=== PATIENT | male | born 1960 | race Caucasian/White ===

== ENCOUNTER 2022-08-17 07:29 | Observation (INO) | payer MEDICARE ==
[2022-08-17] MEDS ORDERED: Sodium Chloride 0.9% 1000 ML 1,000 ML IV STA (07:45)
[2022-08-17] MEDS ORDERED: Sodium Chloride 0.9% 1000 ML 1,000 ML ONE ×2 (07:52→09:08)
--- NOTE | 2022-08-17 07:54 | ERPHSYRPT ---
- History of Present Illness Time Seen by Provider: 08/17/22 07:45 Source: patient Exam Limitations: no limitations Patient Subjective Stated Complaint: Cough Triage Nursing Assessment: Patient brought to ED per w/c and transferred self to bed. Patient A+O X 3. Patient's skin pink, warm and dry. Patient complains of non productive cough, bodyaches, chills, congestion and occasioanl SOB, and diarrhea for the past 3 days. Patient reports not eating or drinking much. Patient complains of body aches 07/03. Lungs clear a/p donavan. Physician History: 61-year-old male with history of hypertension, hyperlipidemia, chronic back pain on pain pump presented in the ER with 3 days history of flulike symptoms. Patient reports feeling generalized body aches with cough congestion/runny nose. Nonproductive cough because of repeated coughing having generalized chest soreness. Having chills and night sweats along with generalized weakness fatigue and tiredness. Patient feels dehydrated as he has not been eating drinking well for the last 3 days. No abdominal pain nausea vomiting but has have loose stool. Timing/Duration: day(s) (3), gradual onset, worse Cough Quality/Degree: moderate, dry cough Possible Cause: unknown cause Modifying Factors: Worsens With: coughing, exertion Associated Symptoms: chills, chest pain/soreness, cough, headache, muscle aches, nasal congestion, nasal drainage, sinus infection, sore throat, No shortness of breath Allergies/Adverse Reactions: Penicillins Allergy (Verified 08/17/22 08:00) Hx Influenza Vaccination/Date Given: Yes Hx Pneumococcal Vaccination/Date Given: Yes Immunizations Up to Date: Yes Travel Risk - International Travel Have you traveled outside of the country in past 3 weeks: No - Coronavirus Screening Are you exhibiting any of the following symptoms?: Yes Symptoms: Cough: New Onset, Vomiting/Diarrhea, Headaches/Body Aches/Fatigue Close contact with a COVID-19 positive Pt in past 14-21 Days: No - Vaccine Status Have you recieved a Covid-19 vaccination: Yes [employer]: [employer] - Vaccination Dates Date of 2cond Vaccination (if applicable): na - Review of Systems Constitutional: Chills, Fatigue, Weakness Eyes: No Symptoms Ears, Nose, & Throat: Nose Congestion, Throat Pain Respiratory: Cough, No Dyspnea Cardiac: No Symptoms Abdominal/Gastrointestinal: Diarrhea Genitourinary Symptoms: No Symptoms Musculoskeletal: Back Pain, Myalgias Skin: No Symptoms Neurological: Headache Psychological: No Symptoms Endocrine: No Symptoms Hematologic/Lymphatic: No Symptoms Immunological/Allergic: No Symptoms - Past Medical History Pertinent Past Medical History: Yes Cardiac History: Hypertension Endocrine Medical History: Diabetes Type II Other Medical History: DEPRESSION, ANXIETY, 3 CVAS SINCE INITIAL ONSET OF BACK SURGERY - Past Surgical History Past Surgical History: Yes Neuro Surgical History: No Pertinent History Cardiac: No Pertinent History Respiratory: No Pertinent History Gastrointestinal: No Pertinent History Genitourinary: No Pertinent History Musculoskeletal: Orthopedic Surgery Male Surgical History: No Pertinent History Other Surgical History: back surgery. pain pump. knee surgery right - Social History Smoking Status: Current every day smoker How long have you smoked: years Exposure to second hand smoke: Yes Drug Use: none Patient Lives Alone: No - Nursing Vital Signs Nursing Vital Signs: Initial Vital Signs Temperature 98.2 F 08/17/22 07:38 Pulse Rate 66 08/17/22 07:38 Respiratory Rate 18 08/17/22 07:38 Blood Pressure 183/83 08/17/22 07:38 O2 Sat by Pulse Oximetry 100 08/17/22 07:38 Pain Scale Pain Intensity 10 - Physical Exam General Appearance: no apparent distress, alert Eye Exam: PERRL/EOMI Ears, Nose, Throat Exam: TMs normal, pharyngeal erythema Neck Exam: normal inspection, supple, full range of motion Respiratory Exam: normal breath sounds, lungs clear Cardiovascular Exam: regular rate/rhythm, normal heart sounds Gastrointestinal/Abdomen Exam: soft, normal bowel sounds, No tenderness Back Exam: normal inspection, No normal range of motion Extremity Exam: normal inspection, normal range of motion Neurologic Exam: alert, oriented x 3, sales lead generator II-XII nml as tested Skin Exam: normal color SpO2 Interpretation: normal SpO2: 100 O2 Delivery: Room Air - Course EKG Interpreted by Me: RATE (64), Sinus Rhythm, NORMAL AXIS, NORMAL INTERVALS, Q-wave, Non-specific ST Changes Ordered Tests: Active Orders 24 hr Category Date Time Status IV Insertion STAT Care 08/17/22 07:45 Active CHEST 1 VIEW (PORTABLE) Stat Exams 08/17/22 07:45 Completed BLOOD CULTURE Stat Lab 08/17/22 08:01 Received CBC W DIFF Stat Lab 08/17/22 07:45 Completed CMP Stat Lab 08/17/22 07:55 Completed Lactic Acid Stat Lab 08/17/22 07:55 Completed MAG [MAGNESIUM] Stat Lab 08/17/22 09:28 Completed PROCALCITONIN Stat Lab 08/17/22 07:55 Completed UA W/RFX CULTURE Stat Lab 08/17/22 09:21 Completed Medication Summary Generic Name Dose Route Start Last Admin Trade Name Arnulfo PRN Reason Stop Dose Admin Potassium Chloride 20 meq in 100 mls @ 50 mls/hr 08/17/22 08:53 08/17/22 09:09 Potassium Chloride 20 Meq In Water 100ml IV 08/17/22 10:52 50 mls/hr STAT ONE Administration Sodium Chloride 1,000 mls @ 100 mls/hr 08/17/22 09:00 08/17/22 09:09 Sodium Chloride 0.9% 1000 Ml IV 09/16/22 08:59 100 mls/hr .Q10H STEPH Administration Magnesium Sulfate/Dextrose 100 mls @ 200 mls/hr 08/17/22 10:29 Magnesium 1 Gm / 100 Ml D5w IV 08/17/22 10:58 STAT ONE Discontinued Medications Generic Name Dose Route Start Last Admin Trade Name Arnulfo PRN Reason Stop Dose Admin Sodium Chloride 1,000 mls @ 999 mls/hr 08/17/22 07:45 08/17/22 08:55 Sodium Chloride 0.9% 1000 Ml IV 08/17/22 08:45 Infused .Q1H1M STA Infusion Sodium Chloride Confirm 08/17/22 07:52 Sodium Chloride 0.9% 1000 Ml Administered 08/17/22 07:53 Dose 1,000 mls @ ud .ROUTE .STK-MED ONE Potassium Chloride Confirm 08/17/22 09:08 Potassium Chloride 20 Meq In Water 100ml Administered 08/17/22 09:09 Dose 100 mls @ ud IV .STK-MED ONE Potassium Chloride 40 meq 08/17/22 08:53 08/17/22 09:10 Potassium Chloride Tab 10 Meq Tab PO 08/17/22 08:54 40 meq STAT ONE Administration Potassium Chloride Confirm 08/17/22 09:08 Potassium Chloride Tab 10 Meq Tab Administered 08/17/22 09:09 Dose 40 meq PO .STK-MED ONE Lab/Rad Data: Laboratory Result Diagrams 08/17/22 07:45 08/17/22 07:55 Laboratory Results 08/17/22 08/17/22 08/17/22 Range/Units 09:28 09:21 07:55 WBC (4.0-10.5) x10^3/uL RBC (4.1-5.6) x10^6/uL Hgb (12.5-18.0) g/dL Hct (42-50) % MCV (78-100) fL MCH (26-32) pg MCHC (32-36) g/dL RDW (11.5-14.0) % Plt Count (150-450) x10^3/uL MPV (7.5-11.0) fL Gran % (36.0-66.0) % Immature Gran % (Auto) (0.00-0.4) % Nucleat RBC Rel Count (0.00-0.1) % Eos # (Auto) (0-0.5) x10^3/uL Immature Gran # (Auto) (0.00-0.03) x10^3u/L Absolute Lymphs (auto) (1.0-4.6) x10^3/uL Absolute Monos (auto) (0.0-1.3) x10^3/uL Absolute Nucleated RBC (0.00-0.01) x10^3u/L Lymphocytes % (24.0-44.0) % Monocytes % (0.0-12.0) % Eosinophils % (0.00-5.0) % Basophils % (0.0-0.4) % Absolute Granulocytes (1.4-6.9) x10^3/uL Basophils # (0-0.4) x10^3/uL Sodium (137-145) mmol/L Potassium (3.5-5.1) mmol/L Chloride (98-107) mmol/L Carbon Dioxide (22-30) mmol/L Anion Gap (5-15) MEQ/L BUN (9-20) mg/dL Creatinine (0.66-1.25) mg/dL Estimated GFR ML/MIN Glucose (74-106) mg/dL Lactic Acid (0.4-2.0) Calcium (8.4-10.2) mg/dL Magnesium 1.7 (1.6-2.3) mg/dL Total Bilirubin (0.2-1.3) mg/dL AST (17-59) U/L ALT (0-50) U/L Alkaline Phosphatase (38-126) U/L Serum Total Protein (6.3-8.2) g/dL Albumin (3.5-5.0) g/dL Procalcitonin 0.087 H (0.030-0.080) ng/mL Urinalys Dipstick Clnc MAIN LAB Urine Color YELLOW (YELLOW) Urine Appearance CLEAR (CLEAR) Urine pH 7.5 (5-6) Ur Specific [place] 1.015 (1.005-1.025) POC Urine Protein Conf NEGATIVE (Negative) Urine Ketones NEGATIVE (NEGATIVE) Urine Nitrite NEGATIVE (NEGATIVE) Urine Bilirubin NEGATIVE (NEGATIVE) Urine Urobilinogen 0.2 (0-1) mg/dL Urine Leukocytes NEGATIVE (NEGATIVE) Urine WBC (Auto) 0-2 (0-5) /HPF Urine RBC (Auto) NONE (0-2) /HPF U Epithel Cells (Auto) NONE (FEW) /HPF Urine Bacteria (Auto) NONE (NEGATIVE) /HPF Urine RBC NEGATIVE (0-5) Young/ul Ur Culture Indicated? NO Urine Glucose NEGATIVE (NEGATIVE) mg/dL Influenza Type A Ag (NEGATIVE) Influenza Type B Ag (NEGATIVE) RSV (PCR) (Negative) SARS-CoV-2 (PCR) (NEGATIVE) 08/17/22 08/17/22 08/17/22 Range/Units 07:55 07:55 07:45 WBC 8.9 (4.0-10.5) x10^3/uL RBC 4.10 (4.1-5.6) x10^6/uL Hgb 10.7 L (12.5-18.0) g/dL Hct 33.7 L (42-50) % MCV 82.2 (78-100) fL MCH 26.1 (26-32) pg MCHC 31.8 L (32-36) g/dL RDW 15.5 H (11.5-14.0) % Plt Count 368 (150-450) x10^3/uL MPV 9.7 (7.5-11.0) fL Gran % 72.8 H (36.0-66.0) % Immature Gran % (Auto) 0.3 (0.00-0.4) % Nucleat RBC Rel Count 0.0 (0.00-0.1) % Eos # (Auto) 0.03 (0-0.5) x10^3/uL Immature Gran # (Auto) 0.03 (0.00-0.03) x10^3u/L Absolute Lymphs (auto) 1.59 (1.0-4.6) x10^3/uL Absolute Monos (auto) 0.72 (0.0-1.3) x10^3/uL Absolute Nucleated RBC 0.00 (0.00-0.01) x10^3u/L Lymphocytes % 17.8 L (24.0-44.0) % Monocytes % 8.1 (0.0-12.0) % Eosinophils % 0.3 (0.00-5.0) % Basophils % 0.7 (0.0-0.4) % Absolute Granulocytes 6.49 (1.4-6.9) x10^3/uL Basophils # 0.06 (0-0.4) x10^3/uL Sodium 137 (137-145) mmol/L Potassium 2.6 L* (3.5-5.1) mmol/L Chloride 100 (98-107) mmol/L Carbon Dioxide 27 (22-30) mmol/L Anion Gap 13.0 (5-15) MEQ/L BUN 7 L (9-20) mg/dL Creatinine 0.57 L (0.66-1.25) mg/dL Estimated GFR > 60.0 ML/MIN Glucose 129 H (74-106) mg/dL Lactic Acid 1.5 (0.4-2.0) Calcium 9.5 (8.4-10.2) mg/dL Magnesium (1.6-2.3) mg/dL Total Bilirubin 0.60 (0.2-1.3) mg/dL AST 18 (17-59) U/L ALT 14 (0-50) U/L Alkaline Phosphatase 77 (38-126) U/L Serum Total Protein 7.8 (6.3-8.2) g/dL Albumin 4.2 (3.5-5.0) g/dL Procalcitonin (0.030-0.080) ng/mL Urinalys Dipstick Clnc Urine Color (YELLOW) Urine Appearance (CLEAR) Urine pH (5-6) Ur Specific [place] (1.005-1.025) POC Urine Protein Conf (Negative) Urine Ketones (NEGATIVE) Urine Nitrite (NEGATIVE) Urine Bilirubin (NEGATIVE) Urine Urobilinogen (0-1) mg/dL Urine Leukocytes (NEGATIVE) Urine WBC (Auto) (0-5) /HPF Urine RBC (Auto) (0-2) /HPF U Epithel Cells (Auto) (FEW) /HPF Urine Bacteria (Auto) (NEGATIVE) /HPF Urine RBC (0-5) Young/ul Ur Culture Indicated? Urine Glucose (NEGATIVE) mg/dL Influenza Type A Ag (NEGATIVE) Influenza Type B Ag (NEGATIVE) RSV (PCR) (Negative) SARS-CoV-2 (PCR) (NEGATIVE) 08/17/22 Range/Units 07:39 WBC (4.0-10.5) x10^3/uL RBC (4.1-5.6) x10^6/uL Hgb (12.5-18.0) g/dL Hct (42-50) % MCV (78-100) fL MCH (26-32) pg MCHC (32-36) g/dL RDW (11.5-14.0) % Plt Count (150-450) x10^3/uL MPV (7.5-11.0) fL Gran % (36.0-66.0) % Immature Gran % (Auto) (0.00-0.4) % Nucleat RBC Rel Count (0.00-0.1) % Eos # (Auto) (0-0.5) x10^3/uL Immature Gran # (Auto) (0.00-0.03) x10^3u/L Absolute Lymphs (auto) (1.0-4.6) x10^3/uL Absolute Monos (auto) (0.0-1.3) x10^3/uL Absolute Nucleated RBC (0.00-0.01) x10^3u/L Lymphocytes % (24.0-44.0) % Monocytes % (0.0-12.0) % Eosinophils % (0.00-5.0) % Basophils % (0.0-0.4) % Absolute Granulocytes (1.4-6.9) x10^3/uL Basophils # (0-0.4) x10^3/uL Sodium (137-145) mmol/L Potassium (3.5-5.1) mmol/L Chloride (98-107) mmol/L Carbon Dioxide (22-30) mmol/L Anion Gap (5-15) MEQ/L BUN (9-20) mg/dL Creatinine (0.66-1.25) mg/dL Estimated GFR ML/MIN Glucose (74-106) mg/dL Lactic Acid (0.4-2.0) Calcium (8.4-10.2) mg/dL Magnesium (1.6-2.3) mg/dL Total Bilirubin (0.2-1.3) mg/dL AST (17-59) U/L ALT (0-50) U/L Alkaline Phosphatase (38-126) U/L Serum Total Protein (6.3-8.2) g/dL Albumin (3.5-5.0) g/dL Procalcitonin (0.030-0.080) ng/mL Urinalys Dipstick Clnc Urine Color (YELLOW) Urine Appearance (CLEAR) Urine pH (5-6) Ur Specific [place] (1.005-1.025) POC Urine Protein Conf (Negative) Urine Ketones (NEGATIVE) Urine Nitrite (NEGATIVE) Urine Bilirubin (NEGATIVE) Urine Urobilinogen (0-1) mg/dL Urine Leukocytes (NEGATIVE) Urine WBC (Auto) (0-5) /HPF Urine RBC (Auto) (0-2) /HPF U Epithel Cells (Auto) (FEW) /HPF Urine Bacteria (Auto) (NEGATIVE) /HPF Urine RBC (0-5) Young/ul Ur Culture Indicated? Urine Glucose (NEGATIVE) mg/dL Influenza Type A Ag NEGATIVE (NEGATIVE) Influenza Type B Ag NEGATIVE (NEGATIVE) RSV (PCR) NEGATIVE (Negative) SARS-CoV-2 (PCR) NEGATIVE (NEGATIVE) - Progress Progress: improved Air Movement: good Progress Note: 08/17/22 10:30 61-year-old is evaluated for flulike symptoms. He is given fluids. Work-up showed normal white count, normal lactate. Chemistries hypokalemia 2.6 with magnesium of 1.7. Given IV magnesium and potassium replacement. Chest x-ray no acute cardiopulmonary findings. EKG no acute ischemic changes. Patient has a negative COVID flu RSV and no UTI. Procalcitonin is mildly elevated 0.087. I have obtained cultures. I have discussed with Dr. Urias, reviewed history, work-up and agreed with holding off on any antibiotics and patient is accepted for admission. Blood Culture(s) Obtained: Yes Antibiotics given: No Discussed with Dr.: Janes Will see patient in: hospital (observation) Counseled pt/family regarding: lab results, diagnosis, rad results, smoking cessation - Departure Departure Disposition: Observation Clinical Impression: Viral syndrome, Hypokalemia, Generalized weakness Condition: Stable Critical Care Time: No Referrals: MARYBEL OROZCO, APPLICATION TRAINER [Primary Care Provider] - Follow up/PCP as directed
[2022-08-17 08:08] LABS: Absolute Neutrophil Ct (ANC) 6.49 x10^3/uL (1.4-6.9); Basophil (Absolute #) 0.06 x10^3/uL (0-0.4); Eosinophil % 0.3 % (0.00-5.0); Eosinophil (Absolute #) 0.03 x10^3/uL (0-0.5); Hematocrit 33.7 % (42-50); Hemoglobin 10.7 g/dL (12.5-18.0); Lymphocyte (Absolute #) 1.59 x10^3/uL (1.0-4.6); Lymphocytes % 17.8 % (24.0-44.0); Mean Cell Volume 82.2 fL (78-100); Mean Corpuscular Hemoglobin 26.1 pg (26-32); Mean Corpuscular Hgb Concent. 31.8 g/dL (32-36); Mean Platelet Volume 9.7 fL (7.5-11.0); Monocyte (Absolute #) 0.72 x10^3/uL (0.0-1.3); Monocytes % 8.1 % (0.0-12.0); Neutrophil % 72.8 % (36.0-66.0); Platelet Count 368 x10^3/uL (150-450); Red Cell Distribution Width 15.5 % (11.5-14.0); White Blood Count 8.9 x10^3/uL (4.0-10.5)
[2022-08-17 08:15] LABS: INFLUENZA A NEGATIVE (NEGATIVE); INFLUENZA B NEGATIVE (NEGATIVE); RESPIRATORY SYNCTIAL VIRUS NEGATIVE (Negative); SARS-CoV-2 Xpert Express NEGATIVE (NEGATIVE)
--- NOTE | 2022-08-17 08:29 | XRAY ---
Indication: Productive cough, chills, body ache, and diarrhea 3 days. Comparison: None Portable apical lordotic chest demonstrates normal heart and lungs. Bony thorax intact with mild osteopenia and incompletely visualized bilateral thoracolumbar fusion hardware.
[2022-08-17 08:31] LABS: ALBUMIN 4.2 g/dL (3.5-5.0); ALKALINE PHOSPHATASE 77 U/L (38-126); BLOOD UREA NITROGEN 7 mg/dL (9-20); CHLORIDE 100 mmol/L (98-107); Calcium 9.5 mg/dL (8.4-10.2); Carbon Dioxide 27 mmol/L (22-30); Creatinine 1 0.57 mg/dL (0.66-1.25); EST GLOMERULAR FILTRATION RATE > 60.0 ML/MIN; Glucose 129 mg/dL (74-106); SGOT/AST 18 U/L (17-59); SGPT/ALT 14 U/L (0-50); SODIUM 137 mmol/L (137-145); Total Protein 7.8 g/dL (6.3-8.2)
[2022-08-17 08:44] LABS: Potassium 2.6 mmol/L (3.5-5.1)
[2022-08-17] MEDS ORDERED: POTASSIUM CHLORIDE 20 mEq IN WATER 100ML 20 MEQ/100 ML BAG IV ONE ×2 (08:53→13:45)
[2022-08-17] MEDS ORDERED: Klor Con PO ONE ×2 (08:53→09:08)
[2022-08-17] MEDS ORDERED: Sodium Chloride 0.9% 1000 ML 1,000 ML IV SCH (09:00)
[2022-08-17] MEDS ORDERED: POTASSIUM CHLORIDE 20 mEq IN WATER 100ML 100 ML IV ONE (09:08)
[2022-08-17 10:03] LABS: Appearance CLEAR (CLEAR); Bilirubin NEGATIVE (NEGATIVE); Dipstick done @ ? MAIN LAB; Glucose NEGATIVE (NEGATIVE); Ketones NEGATIVE (NEGATIVE); Nitrite NEGATIVE (NEGATIVE); Ph 7.5 (5-6); Protein,Urine Dip NEGATIVE (Negative); RBC NEGATIVE Ery/ul (0-5); Specific Gravity 1.015 (1.005-1.025); Urine Cultured Indicated? NO; Urobilinogen 0.2 mg/dL (0-1); WBC 0-2 /HPF (0-5)
[2022-08-17] MEDS ORDERED: Magnesium 1 Gm / 100 Ml D5W*** 100 ML IV ONE ×2 (10:29→11:23)
[2022-08-17] MEDS ORDERED: TYLENOL 325 MG PO PRN (11:38)
[2022-08-17] MEDS ORDERED: MORPHINE SULFATE 2 MG INJ IV PRN (11:38)
[2022-08-17] MEDS ORDERED: DUONEB 0.5-3 MG/3 ml Neb IH PRN (11:38)
[2022-08-17] MEDS ORDERED: PROTONIX 40 MG IV IV SCH (13:00)
[2022-08-17] MEDS: SODIUM CHLORIDE 0.9% W/ 40 mEq KCL 1000ML 1,000 ML IV SCH ×2 (13:30→22:19)
[2022-08-17] MEDS ORDERED: NON-FORMULARY ITEM (Albuterol Sulfate [Proair Respiclick] 90 MCG Aer.Pow.Ba) IH PRN (13:34)
[2022-08-17] MEDS ORDERED: Cyclobenzaprine 10 MG PO PRN (13:34)
[2022-08-17] MEDS ORDERED: VENTOLIN COMMON CANISTER IH PRN (13:40)
[2022-08-17] MEDS ORDERED: MEDICATION INTERVENTION MC SCH ×2 (13:45)
[2022-08-17] MEDS: Lopressor 50 MG PO SCH ×2 (14:01→22:13)
[2022-08-17] MEDS: NORCO 5/325 MG PO PRN ×2 (14:02→20:25)
[2022-08-17] MEDS ORDERED: Zestril 20 MG PO SCH (15:00)
[2022-08-17] MEDS ORDERED: VITAMIN D PO SCH (15:00)
[2022-08-17] MEDS ORDERED: hydroDIURIL 25 MG PO SCH (15:00)
[2022-08-17] MEDS: NEURONTIN PO SCH ×2 (17:05→22:14)
[2022-08-17] MEDS: PATIENT OWN MEDICATION IH SCH (17:47)
[2022-08-17] MEDS ORDERED: NON-FORMULARY ITEM (Famotidine [Pepcid] 40 MG Tablet) PO SCH (22:00)
[2022-08-17] MEDS ORDERED: NON-FORMULARY ITEM (Atorvastatin Calcium [Atorvastatin Calcium] 10 MG Tablet) PO SCH (22:00)
[2022-08-17] MEDS ORDERED: [UNRECOGNIZED DRUG - OTHER] PO SCH (22:00)
[2022-08-17] MEDS ORDERED: NON-FORMULARY ITEM (Metoprolol Tartrate [Metoprolol Tartrate] 100 MG Tablet) PO SCH (22:00)
[2022-08-17] MEDS ORDERED: DIPYRIDAMOLE PO SCH (22:00)
[2022-08-17] MEDS ORDERED: ASPIRIN PO SCH (22:00)
[2022-08-17] MEDS ORDERED: DESYREL 50 MG PO SCH (22:00)
[2022-08-17] MEDS ORDERED: Pepcid 20 MG PO SCH (22:00)
[2022-08-17] MEDS ORDERED: Zocor 10MG PO SCH (22:00)
[2022-08-17] MEDS ORDERED: Cymbalta 30 MG Capsule PO SCH (22:00)
[2022-08-18] MEDS: NORCO 5/325 MG PO PRN (02:37)
[2022-08-18 05:07] LABS: ANION GAP 9.7 MEQ/L (5-15); Absolute Neutrophil Ct (ANC) 5.06 x10^3/uL (1.4-6.9); BLOOD UREA NITROGEN 8 mg/dL (9-20); Basophil (Absolute #) 0.08 x10^3/uL (0-0.4); CHLORIDE 108 mmol/L (98-107); Calcium 8.9 mg/dL (8.4-10.2); Carbon Dioxide 24 mmol/L (22-30); Creatinine 1 0.63 mg/dL (0.66-1.25); EST GLOMERULAR FILTRATION RATE > 60.0 ML/MIN; Eosinophil % 0.8 % (0.00-5.0); Eosinophil (Absolute #) 0.07 x10^3/uL (0-0.5); Glucose 132 mg/dL (74-106); Hematocrit 31.7 % (42-50); Hemoglobin 9.6 g/dL (12.5-18.0); Lymphocyte (Absolute #) 2.32 x10^3/uL (1.0-4.6); Lymphocytes % 27.6 % (24.0-44.0); Mean Cell Volume 85.4 fL (78-100); Mean Corpuscular Hemoglobin 25.9 pg (26-32); Mean Corpuscular Hgb Concent. 30.3 g/dL (32-36); Mean Platelet Volume 9.8 fL (7.5-11.0); Monocyte (Absolute #) 0.86 x10^3/uL (0.0-1.3); Monocytes % 10.2 % (0.0-12.0); Platelet Count 335 x10^3/uL (150-450); Potassium 3.7 mmol/L (3.5-5.1); Red Blood Count 3.71 x10^6/uL (4.1-5.6); Red Cell Distribution Width 15.9 % (11.5-14.0); SODIUM 137 mmol/L (137-145); White Blood Count 8.4 x10^3/uL (4.0-10.5)
[2022-08-18 07:23] VITALS: BP 155/73
[2022-08-18] MEDS: PATIENT OWN MEDICATION IH SCH (07:53)
[2022-08-18 07:57] VITALS: PULSE 95; O2SAT 95
--- NOTE | 2022-08-18 08:30 | PCM.SSS ---
History of Present Illness - Chief Complaint Chief Complaint: Hypokalemia;viral syndrome; generalized weakness History of Present Illness: is a 61 year old male who presented to the ER with fatigue, generalized body aches and night sweats, he had diarrhea for 2-3 days prior to arrival with poor po intake, found to have low potassium on arrival. had extensive back surgery in March with hardware and has a pain pump in place. - Review of Systems Constitutional: No Fever, No Chills Respiratory: No Cough, No Short Of Breath Cardiac: No Chest Pain, No Edema, No Syncope Abdominal/Gastrointestinal: Diarrhea (resolved since admission), No Nausea, No Vomiting Genitourinary Symptoms: No Dysuria Skin: No Rash All Other Systems: Reviewed and Negative Medications & Allergies Home Medications: Home Medication List ALPRAZolam 0.25 MG [xanAX 0.25 MG] 0.25 mg PO DAILY PRN PRN 08/17/22 [History Confirmed 08/17/22] Albuterol Sulfate [Proair Respiclick] 2 puffs IH Q4HPRN PRN 08/17/22 [History Confirmed 08/17/22] Aspirin/Dipyridamole [Aspirin-Dipyridam ER 25-200 mg] 1 each PO BID 08/17/22 [History Confirmed 08/17/22] Atorvastatin Calcium 10 mg PO QHS 08/17/22 [History Confirmed 08/17/22] Cholecalciferol (Vitamin D3) [Vitamin D3] 50 mcg PO DAILY 08/17/22 [History Confirmed 08/17/22] Cyclobenzaprine HCl 10 mg [Cyclobenzaprine 10 MG] 10 mg PO QHS PRN 08/17/22 [History Confirmed 08/17/22] Diclofenac Sodium [Voltaren Arthritis Pain] 1 each TOP QID PRN 08/17/22 [History Confirmed 08/17/22] Duloxetine HCl 30 mg [Cymbalta 30 MG Capsule] 60 mg PO BID 08/17/22 [History Confirmed 08/17/22] Famotidine [Pepcid] 40 mg PO QHS 08/17/22 [History Confirmed 08/17/22] Furosemide 20 mg [Lasix 20 mg] 20 mg PO DAILY 08/17/22 [History Confirmed 08/17/22] Gabapentin [Neurontin ] 300 mg PO QID 08/17/22 [History Confirmed 08/17/22] Lisinopril 20 mg [Zestril 20 MG] 20 mg PO DAILY 08/17/22 [History Confirmed 08/17/22] Metoprolol Tartrate 100 mg PO BID 08/17/22 [History Confirmed 08/17/22] Niacin (Inositol Niacinate) [Niacin 500 mg Capsule] 500 mg PO BID 08/17/22 [History Confirmed 08/17/22] [place]-3 Fatty Acids/Fish Oil [Fish Oil 1,000 mg Capsule] 1,000 mg PO BID 08/17/22 [History Confirmed 08/17/22] Trazodone HCl 50 mg [Desyrel 50 mg] 50 mg PO QHS 08/17/22 [History Confirmed 08/17/22] Umeclidinium Brm/Vilanterol Tr [Anoro Ellipta 62.5-25 Mcg INH] 1 puff IH DAILY 08/17/22 [History Confirmed 08/17/22] hydroCHLOROthiazide [Hydrochlorothiazide] 50 mg PO DAILY 08/17/22 [History Confirmed 08/17/22] Potassium Chloride 10 meq PO DAILY #30 tablet 08/18/22 [Rx] Allergies/Adverse Reactions: Allergies Allergy/AdvReac Type Severity Reaction Status Date / Time Penicillins Allergy Verified 08/17/22 08:00 - Past Medical History Past Medical History: Yes Neurological History: TIA Cardiac History: Hypertension Respiratory History: COPD Endocrine Medical History: Diabetes Type II Musculoskelatal History: Arthritis, Degenerative Disk Disease GI Medical History: Polyps Pyscho-Social History: Anxiety, Depression Comment: DEPRESSION, ANXIETY, 3 CVAS SINCE INITIAL ONSET OF BACK SURGERY - Past Surgical History Past Surgical History: Yes Neuro Surgical History: No Pertinent History Cardiac History: No Pertinent History Respiratory Surgery: No Pertinent History GI Surgical History: No Pertinent History Genitourinary Surgical Hx: No Pertinent History Musculskeletal Surgical Hx: Orthopedic Surgery Male Surgical History: No Pertinent History Other Surgical History: back surgery. pain pump. knee surgery right - Social History Smoking Status: Current every day smoker How long have you smoked: 45 years Exposure to second hand smoke: Yes Alcohol: None Drug Use: marijuana - Physical Exam Vital Signs: Vital Signs - 24 hr Temp Pulse Resp BP Pulse Ox 08/18/22 07:54 95 H 16 95 08/18/22 07:22 98.0 F 57 L 16 155/73 94 L 08/18/22 04:00 97.8 F 70 18 145/63 97 08/17/22 23:59 18 08/17/22 23:55 97.8 F 66 18 143/65 97 08/17/22 20:00 18 08/17/22 19:52 97.8 F 62 18 131/60 99 08/17/22 17:48 63 16 97 08/17/22 16:00 98.7 F 60 18 132/67 97 08/17/22 14:47 98 08/17/22 12:12 99.3 F 62 18 158/75 97 08/17/22 11:38 99.3 F 62 18 158/75 97 08/17/22 10:31 100 08/17/22 10:30 76 19 159/84 100 08/17/22 09:33 61 11 L 150/78 100 08/17/22 08:35 58 L 15 147/77 100 General Appearance: no apparent distress Neurologic Exam: alert, oriented x 3 Respiratory Exam: normal breath sounds, lungs clear, No respiratory distress Cardiovascular Exam: regular rate/rhythm, normal heart sounds, normal peripheral pulses Gastrointestinal/Abdomen Exam: soft, normal bowel sounds, No tenderness, No mass Back Exam: other (wears a hard brace) Results - Labs Lab/Micro Results: Lab Results-Last 24 Hours 08/17/22 08/17/22 08/17/22 Range/Units 07:55 07:55 09:21 WBC (4.0-10.5) x10^3/uL RBC (4.1-5.6) x10^6/uL Hgb (12.5-18.0) g/dL Hct (42-50) % MCV (78-100) fL MCH (26-32) pg MCHC (32-36) g/dL RDW (11.5-14.0) % Plt Count (150-450) x10^3/uL MPV (7.5-11.0) fL Gran % (36.0-66.0) % Immature Gran % (Auto) (0.00-0.4) % Nucleat RBC Rel Count (0.00-0.1) % Eos # (Auto) (0-0.5) x10^3/uL Immature Gran # (Auto) (0.00-0.03) x10^3u/L Absolute Lymphs (auto) (1.0-4.6) x10^3/uL Absolute Monos (auto) (0.0-1.3) x10^3/uL Absolute Nucleated RBC (0.00-0.01) x10^3u/L Lymphocytes % (24.0-44.0) % Monocytes % (0.0-12.0) % Eosinophils % (0.00-5.0) % Basophils % (0.0-0.4) % Absolute Granulocytes (1.4-6.9) x10^3/uL Basophils # (0-0.4) x10^3/uL Sodium 137 (137-145) mmol/L Potassium 2.6 L* (3.5-5.1) mmol/L Chloride 100 (98-107) mmol/L Carbon Dioxide 27 (22-30) mmol/L Anion Gap 13.0 (5-15) MEQ/L BUN 7 L (9-20) mg/dL Creatinine 0.57 L (0.66-1.25) mg/dL Estimated GFR > 60.0 ML/MIN Glucose 129 H (74-106) mg/dL POC Glucometer (74 to 106) mg/dL Hemoglobin A1c (4.5-6.0) % Calcium 9.5 (8.4-10.2) mg/dL Magnesium (1.6-2.3) mg/dL Total Bilirubin 0.60 (0.2-1.3) mg/dL AST 18 (17-59) U/L ALT 14 (0-50) U/L Alkaline Phosphatase 77 (38-126) U/L Serum Total Protein 7.8 (6.3-8.2) g/dL Albumin 4.2 (3.5-5.0) g/dL Procalcitonin 0.087 H (0.030-0.080) ng/mL Urinalys Dipstick Clnc MAIN LAB Urine Color YELLOW (YELLOW) Urine Appearance CLEAR (CLEAR) Urine pH 7.5 (5-6) Ur Specific [place] 1.015 (1.005-1.025) POC Urine Protein Conf NEGATIVE (Negative) Urine Ketones NEGATIVE (NEGATIVE) Urine Nitrite NEGATIVE (NEGATIVE) Urine Bilirubin NEGATIVE (NEGATIVE) Urine Urobilinogen 0.2 (0-1) mg/dL Urine Leukocytes NEGATIVE (NEGATIVE) Urine WBC (Auto) 0-2 (0-5) /HPF Urine RBC (Auto) NONE (0-2) /HPF U Epithel Cells (Auto) NONE (FEW) /HPF Urine Bacteria (Auto) NONE (NEGATIVE) /HPF Urine RBC NEGATIVE (0-5) Young/ul Ur Culture Indicated? NO Urine Glucose NEGATIVE (NEGATIVE) mg/dL Stool Occult Blood (NEGATIVE) 08/17/22 08/17/22 08/17/22 Range/Units 09:28 11:14 12:10 WBC (4.0-10.5) x10^3/uL RBC (4.1-5.6) x10^6/uL Hgb (12.5-18.0) g/dL Hct (42-50) % MCV (78-100) fL MCH (26-32) pg MCHC (32-36) g/dL RDW (11.5-14.0) % Plt Count (150-450) x10^3/uL MPV (7.5-11.0) fL Gran % (36.0-66.0) % Immature Gran % (Auto) (0.00-0.4) % Nucleat RBC Rel Count (0.00-0.1) % Eos # (Auto) (0-0.5) x10^3/uL Immature Gran # (Auto) (0.00-0.03) x10^3u/L Absolute Lymphs (auto) (1.0-4.6) x10^3/uL Absolute Monos (auto) (0.0-1.3) x10^3/uL Absolute Nucleated RBC (0.00-0.01) x10^3u/L Lymphocytes % (24.0-44.0) % Monocytes % (0.0-12.0) % Eosinophils % (0.00-5.0) % Basophils % (0.0-0.4) % Absolute Granulocytes (1.4-6.9) x10^3/uL Basophils # (0-0.4) x10^3/uL Sodium (137-145) mmol/L Potassium (3.5-5.1) mmol/L Chloride (98-107) mmol/L Carbon Dioxide (22-30) mmol/L Anion Gap (5-15) MEQ/L BUN (9-20) mg/dL Creatinine (0.66-1.25) mg/dL Estimated GFR ML/MIN Glucose (74-106) mg/dL POC Glucometer (74 to 106) mg/dL Hemoglobin A1c 6.41 H (4.5-6.0) % Calcium (8.4-10.2) mg/dL Magnesium 1.7 (1.6-2.3) mg/dL Total Bilirubin (0.2-1.3) mg/dL AST (17-59) U/L ALT (0-50) U/L Alkaline Phosphatase (38-126) U/L Serum Total Protein (6.3-8.2) g/dL Albumin (3.5-5.0) g/dL Procalcitonin (0.030-0.080) ng/mL Urinalys Dipstick Clnc Urine Color (YELLOW) Urine Appearance (CLEAR) Urine pH (5-6) Ur Specific [place] (1.005-1.025) POC Urine Protein Conf (Negative) Urine Ketones (NEGATIVE) Urine Nitrite (NEGATIVE) Urine Bilirubin (NEGATIVE) Urine Urobilinogen (0-1) mg/dL Urine Leukocytes (NEGATIVE) Urine WBC (Auto) (0-5) /HPF Urine RBC (Auto) (0-2) /HPF U Epithel Cells (Auto) (FEW) /HPF Urine Bacteria (Auto) (NEGATIVE) /HPF Urine RBC (0-5) Young/ul Ur Culture Indicated? Urine Glucose (NEGATIVE) mg/dL Stool Occult Blood POSITIVE A (NEGATIVE) 08/17/22 08/17/22 08/17/22 Range/Units 16:41 19:06 21:30 WBC (4.0-10.5) x10^3/uL RBC (4.1-5.6) x10^6/uL Hgb (12.5-18.0) g/dL Hct (42-50) % MCV (78-100) fL MCH (26-32) pg MCHC (32-36) g/dL RDW (11.5-14.0) % Plt Count (150-450) x10^3/uL MPV (7.5-11.0) fL Gran % (36.0-66.0) % Immature Gran % (Auto) (0.00-0.4) % Nucleat RBC Rel Count (0.00-0.1) % Eos # (Auto) (0-0.5) x10^3/uL Immature Gran # (Auto) (0.00-0.03) x10^3u/L Absolute Lymphs (auto) (1.0-4.6) x10^3/uL Absolute Monos (auto) (0.0-1.3) x10^3/uL Absolute Nucleated RBC (0.00-0.01) x10^3u/L Lymphocytes % (24.0-44.0) % Monocytes % (0.0-12.0) % Eosinophils % (0.00-5.0) % Basophils % (0.0-0.4) % Absolute Granulocytes (1.4-6.9) x10^3/uL Basophils # (0-0.4) x10^3/uL Sodium (137-145) mmol/L Potassium 3.5 D (3.5-5.1) mmol/L Chloride (98-107) mmol/L Carbon Dioxide (22-30) mmol/L Anion Gap (5-15) MEQ/L BUN (9-20) mg/dL Creatinine (0.66-1.25) mg/dL Estimated GFR ML/MIN Glucose (74-106) mg/dL POC Glucometer 101 102 (74 to 106) mg/dL Hemoglobin A1c (4.5-6.0) % Calcium (8.4-10.2) mg/dL Magnesium (1.6-2.3) mg/dL Total Bilirubin (0.2-1.3) mg/dL AST (17-59) U/L ALT (0-50) U/L Alkaline Phosphatase (38-126) U/L Serum Total Protein (6.3-8.2) g/dL Albumin (3.5-5.0) g/dL Procalcitonin (0.030-0.080) ng/mL Urinalys Dipstick Clnc Urine Color (YELLOW) Urine Appearance (CLEAR) Urine pH (5-6) Ur Specific [place] (1.005-1.025) POC Urine Protein Conf (Negative) Urine Ketones (NEGATIVE) Urine Nitrite (NEGATIVE) Urine Bilirubin (NEGATIVE) Urine Urobilinogen (0-1) mg/dL Urine Leukocytes (NEGATIVE) Urine WBC (Auto) (0-5) /HPF Urine RBC (Auto) (0-2) /HPF U Epithel Cells (Auto) (FEW) /HPF Urine Bacteria (Auto) (NEGATIVE) /HPF Urine RBC (0-5) Young/ul Ur Culture Indicated? Urine Glucose (NEGATIVE) mg/dL Stool Occult Blood (NEGATIVE) 08/18/22 08/18/22 08/18/22 Range/Units 04:35 04:35 07:45 WBC 8.4 (4.0-10.5) x10^3/uL RBC 3.71 L (4.1-5.6) x10^6/uL Hgb 9.6 L (12.5-18.0) g/dL Hct 31.7 L (42-50) % MCV 85.4 (78-100) fL MCH 25.9 L (26-32) pg MCHC 30.3 L (32-36) g/dL RDW 15.9 H (11.5-14.0) % Plt Count 335 (150-450) x10^3/uL MPV 9.8 (7.5-11.0) fL Gran % 60.0 (36.0-66.0) % Immature Gran % (Auto) 0.4 (0.00-0.4) % Nucleat RBC Rel Count 0.0 (0.00-0.1) % Eos # (Auto) 0.07 (0-0.5) x10^3/uL Immature Gran # (Auto) 0.03 (0.00-0.03) x10^3u/L Absolute Lymphs (auto) 2.32 (1.0-4.6) x10^3/uL Absolute Monos (auto) 0.86 (0.0-1.3) x10^3/uL Absolute Nucleated RBC 0.00 (0.00-0.01) x10^3u/L Lymphocytes % 27.6 (24.0-44.0) % Monocytes % 10.2 (0.0-12.0) % Eosinophils % 0.8 (0.00-5.0) % Basophils % 1.0 (0.0-0.4) % Absolute Granulocytes 5.06 (1.4-6.9) x10^3/uL Basophils # 0.08 (0-0.4) x10^3/uL Sodium 137 (137-145) mmol/L Potassium 3.7 (3.5-5.1) mmol/L Chloride 108 H (98-107) mmol/L Carbon Dioxide 24 (22-30) mmol/L Anion Gap 9.7 (5-15) MEQ/L BUN 8 L (9-20) mg/dL Creatinine 0.63 L (0.66-1.25) mg/dL Estimated GFR > 60.0 ML/MIN Glucose 132 H (74-106) mg/dL POC Glucometer 97 (74 to 106) mg/dL Hemoglobin A1c (4.5-6.0) % Calcium 8.9 (8.4-10.2) mg/dL Magnesium (1.6-2.3) mg/dL Total Bilirubin (0.2-1.3) mg/dL AST (17-59) U/L ALT (0-50) U/L Alkaline Phosphatase (38-126) U/L Serum Total Protein (6.3-8.2) g/dL Albumin (3.5-5.0) g/dL Procalcitonin (0.030-0.080) ng/mL Urinalys Dipstick Clnc Urine Color (YELLOW) Urine Appearance (CLEAR) Urine pH (5-6) Ur Specific [place] (1.005-1.025) POC Urine Protein Conf (Negative) Urine Ketones (NEGATIVE) Urine Nitrite (NEGATIVE) Urine Bilirubin (NEGATIVE) Urine Urobilinogen (0-1) mg/dL Urine Leukocytes (NEGATIVE) Urine WBC (Auto) (0-5) /HPF Urine RBC (Auto) (0-2) /HPF U Epithel Cells (Auto) (FEW) /HPF Urine Bacteria (Auto) (NEGATIVE) /HPF Urine RBC (0-5) Young/ul Ur Culture Indicated? 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 (3) Generalized weakness Current Visit: Yes Status: Acute Code(s): R53.1 - WEAKNESS Hospital Summary - Vitals & Intake/Output Vital Signs: Vital Signs Temperature 98.0 F 08/18/22 07:22 Pulse Rate 95 H 08/18/22 07:54 Respiratory Rate 16 08/18/22 07:54 Blood Pressure 155/73 08/18/22 07:22 O2 Sat by Pulse Oximetry 95 08/18/22 07:54 Intake & Output: Intake & Output 08/15/22 08/16/22 08/17/22 08/18/22 11:59 11:59 11:59 11:59 Intake Total 4795 Balance 4795 Weight 84.5 kg 78 kg - Lab Result Diagrams: 08/18/22 04:35 08/18/22 04:35 Lab Results-Last 24 Hrs: Lab Results-Last 24 Hours 08/17/22 08/17/22 08/17/22 Range/Units 07:55 07:55 09:21 WBC (4.0-10.5) x10^3/uL RBC (4.1-5.6) x10^6/uL Hgb (12.5-18.0) g/dL Hct (42-50) % MCV (78-100) fL MCH (26-32) pg MCHC (32-36) g/dL RDW (11.5-14.0) % Plt Count (150-450) x10^3/uL MPV (7.5-11.0) fL Gran % (36.0-66.0) % Immature Gran % (Auto) (0.00-0.4) % Nucleat RBC Rel Count (0.00-0.1) % Eos # (Auto) (0-0.5) x10^3/uL Immature Gran # (Auto) (0.00-0.03) x10^3u/L Absolute Lymphs (auto) (1.0-4.6) x10^3/uL Absolute Monos (auto) (0.0-1.3) x10^3/uL Absolute Nucleated RBC (0.00-0.01) x10^3u/L Lymphocytes % (24.0-44.0) % Monocytes % (0.0-12.0) % Eosinophils % (0.00-5.0) % Basophils % (0.0-0.4) % Absolute Granulocytes (1.4-6.9) x10^3/uL Basophils # (0-0.4) x10^3/uL Sodium 137 (137-145) mmol/L Potassium 2.6 L* (3.5-5.1) mmol/L Chloride 100 (98-107) mmol/L Carbon Dioxide 27 (22-30) mmol/L Anion Gap 13.0 (5-15) MEQ/L BUN 7 L (9-20) mg/dL Creatinine 0.57 L (0.66-1.25) mg/dL Estimated GFR > 60.0 ML/MIN Glucose 129 H (74-106) mg/dL POC Glucometer (74 to 106) mg/dL Hemoglobin A1c (4.5-6.0) % Calcium 9.5 (8.4-10.2) mg/dL Magnesium (1.6-2.3) mg/dL Total Bilirubin 0.60 (0.2-1.3) mg/dL AST 18 (17-59) U/L ALT 14 (0-50) U/L Alkaline Phosphatase 77 (38-126) U/L Serum Total Protein 7.8 (6.3-8.2) g/dL Albumin 4.2 (3.5-5.0) g/dL Procalcitonin 0.087 H (0.030-0.080) ng/mL Urinalys Dipstick Clnc MAIN LAB Urine Color YELLOW (YELLOW) Urine Appearance CLEAR (CLEAR) Urine pH 7.5 (5-6) Ur Specific [place] 1.015 (1.005-1.025) POC Urine Protein Conf NEGATIVE (Negative) Urine Ketones NEGATIVE (NEGATIVE) Urine Nitrite NEGATIVE (NEGATIVE) Urine Bilirubin NEGATIVE (NEGATIVE) Urine Urobilinogen 0.2 (0-1) mg/dL Urine Leukocytes NEGATIVE (NEGATIVE) Urine WBC (Auto) 0-2 (0-5) /HPF Urine RBC (Auto) NONE (0-2) /HPF U Epithel Cells (Auto) NONE (FEW) /HPF Urine Bacteria (Auto) NONE (NEGATIVE) /HPF Urine RBC NEGATIVE (0-5) Young/ul Ur Culture Indicated? NO Urine Glucose NEGATIVE (NEGATIVE) mg/dL Stool Occult Blood (NEGATIVE) 08/17/22 08/17/22 08/17/22 Range/Units 09:28 11:14 12:10 WBC (4.0-10.5) x10^3/uL RBC (4.1-5.6) x10^6/uL Hgb (12.5-18.0) g/dL Hct (42-50) % MCV (78-100) fL MCH (26-32) pg MCHC (32-36) g/dL RDW (11.5-14.0) % Plt Count (150-450) x10^3/uL MPV (7.5-11.0) fL Gran % (36.0-66.0) % Immature Gran % (Auto) (0.00-0.4) % Nucleat RBC Rel Count (0.00-0.1) % Eos # (Auto) (0-0.5) x10^3/uL Immature Gran # (Auto) (0.00-0.03) x10^3u/L Absolute Lymphs (auto) (1.0-4.6) x10^3/uL Absolute Monos (auto) (0.0-1.3) x10^3/uL Absolute Nucleated RBC (0.00-0.01) x10^3u/L Lymphocytes % (24.0-44.0) % Monocytes % (0.0-12.0) % Eosinophils % (0.00-5.0) % Basophils % (0.0-0.4) % Absolute Granulocytes (1.4-6.9) x10^3/uL Basophils # (0-0.4) x10^3/uL Sodium (137-145) mmol/L Potassium (3.5-5.1) mmol/L Chloride (98-107) mmol/L Carbon Dioxide (22-30) mmol/L Anion Gap (5-15) MEQ/L BUN (9-20) mg/dL Creatinine (0.66-1.25) mg/dL Estimated GFR ML/MIN Glucose (74-106) mg/dL POC Glucometer (74 to 106) mg/dL Hemoglobin A1c 6.41 H (4.5-6.0) % Calcium (8.4-10.2) mg/dL Magnesium 1.7 (1.6-2.3) mg/dL Total Bilirubin (0.2-1.3) mg/dL AST (17-59) U/L ALT (0-50) U/L Alkaline Phosphatase (38-126) U/L Serum Total Protein (6.3-8.2) g/dL Albumin (3.5-5.0) g/dL Procalcitonin (0.030-0.080) ng/mL Urinalys Dipstick Clnc Urine Color (YELLOW) Urine Appearance (CLEAR) Urine pH (5-6) Ur Specific [place] (1.005-1.025) POC Urine Protein Conf (Negative) Urine Ketones (NEGATIVE) Urine Nitrite (NEGATIVE) Urine Bilirubin (NEGATIVE) Urine Urobilinogen (0-1) mg/dL Urine Leukocytes (NEGATIVE) Urine WBC (Auto) (0-5) /HPF Urine RBC (Auto) (0-2) /HPF U Epithel Cells (Auto) (FEW) /HPF Urine Bacteria (Auto) (NEGATIVE) /HPF Urine RBC (0-5) Young/ul Ur Culture Indicated? Urine Glucose (NEGATIVE) mg/dL Stool Occult Blood POSITIVE A (NEGATIVE) 08/17/22 08/17/22 08/17/22 Range/Units 16:41 19:06 21:30 WBC (4.0-10.5) x10^3/uL RBC (4.1-5.6) x10^6/uL Hgb (12.5-18.0) g/dL Hct (42-50) % MCV (78-100) fL MCH (26-32) pg MCHC (32-36) g/dL RDW (11.5-14.0) % Plt Count (150-450) x10^3/uL MPV (7.5-11.0) fL Gran % (36.0-66.0) % Immature Gran % (Auto) (0.00-0.4) % Nucleat RBC Rel Count (0.00-0.1) % Eos # (Auto) (0-0.5) x10^3/uL Immature Gran # (Auto) (0.00-0.03) x10^3u/L Absolute Lymphs (auto) (1.0-4.6) x10^3/uL Absolute Monos (auto) (0.0-1.3) x10^3/uL Absolute Nucleated RBC (0.00-0.01) x10^3u/L Lymphocytes % (24.0-44.0) % Monocytes % (0.0-12.0) % Eosinophils % (0.00-5.0) % Basophils % (0.0-0.4) % Absolute Granulocytes (1.4-6.9) x10^3/uL Basophils # (0-0.4) x10^3/uL Sodium (137-145) mmol/L Potassium 3.5 D (3.5-5.1) mmol/L Chloride (98-107) mmol/L Carbon Dioxide (22-30) mmol/L Anion Gap (5-15) MEQ/L BUN (9-20) mg/dL Creatinine (0.66-1.25) mg/dL Estimated GFR ML/MIN Glucose (74-106) mg/dL POC Glucometer 101 102 (74 to 106) mg/dL Hemoglobin A1c (4.5-6.0) % Calcium (8.4-10.2) mg/dL Magnesium (1.6-2.3) mg/dL Total Bilirubin (0.2-1.3) mg/dL AST (17-59) U/L ALT (0-50) U/L Alkaline Phosphatase (38-126) U/L Serum Total Protein (6.3-8.2) g/dL Albumin (3.5-5.0) g/dL Procalcitonin (0.030-0.080) ng/mL Urinalys Dipstick Clnc Urine Color (YELLOW) Urine Appearance (CLEAR) Urine pH (5-6) Ur Specific [place] (1.005-1.025) POC Urine Protein Conf (Negative) Urine Ketones (NEGATIVE) Urine Nitrite (NEGATIVE) Urine Bilirubin (NEGATIVE) Urine Urobilinogen (0-1) mg/dL Urine Leukocytes (NEGATIVE) Urine WBC (Auto) (0-5) /HPF Urine RBC (Auto) (0-2) /HPF U Epithel Cells (Auto) (FEW) /HPF Urine Bacteria (Auto) (NEGATIVE) /HPF Urine RBC (0-5) Young/ul Ur Culture Indicated? Urine Glucose (NEGATIVE) mg/dL Stool Occult Blood (NEGATIVE) 08/18/22 08/18/22 08/18/22 Range/Units 04:35 04:35 07:45 WBC 8.4 (4.0-10.5) x10^3/uL RBC 3.71 L (4.1-5.6) x10^6/uL Hgb 9.6 L (12.5-18.0) g/dL Hct 31.7 L (42-50) % MCV 85.4 (78-100) fL MCH 25.9 L (26-32) pg MCHC 30.3 L (32-36) g/dL RDW 15.9 H (11.5-14.0) % Plt Count 335 (150-450) x10^3/uL MPV 9.8 (7.5-11.0) fL Gran % 60.0 (36.0-66.0) % Immature Gran % (Auto) 0.4 (0.00-0.4) % Nucleat RBC Rel Count 0.0 (0.00-0.1) % Eos # (Auto) 0.07 (0-0.5) x10^3/uL Immature Gran # (Auto) 0.03 (0.00-0.03) x10^3u/L Absolute Lymphs (auto) 2.32 (1.0-4.6) x10^3/uL Absolute Monos (auto) 0.86 (0.0-1.3) x10^3/uL Absolute Nucleated RBC 0.00 (0.00-0.01) x10^3u/L Lymphocytes % 27.6 (24.0-44.0) % Monocytes % 10.2 (0.0-12.0) % Eosinophils % 0.8 (0.00-5.0) % Basophils % 1.0 (0.0-0.4) % Absolute Granulocytes 5.06 (1.4-6.9) x10^3/uL Basophils # 0.08 (0-0.4) x10^3/uL Sodium 137 (137-145) mmol/L Potassium 3.7 (3.5-5.1) mmol/L Chloride 108 H (98-107) mmol/L Carbon Dioxide 24 (22-30) mmol/L Anion Gap 9.7 (5-15) MEQ/L BUN 8 L (9-20) mg/dL Creatinine 0.63 L (0.66-1.25) mg/dL Estimated GFR > 60.0 ML/MIN Glucose 132 H (74-106) mg/dL POC Glucometer 97 (74 to 106) mg/dL Hemoglobin A1c (4.5-6.0) % Calcium 8.9 (8.4-10.2) mg/dL Magnesium (1.6-2.3) mg/dL Total Bilirubin (0.2-1.3) mg/dL AST (17-59) U/L ALT (0-50) U/L Alkaline Phosphatase (38-126) U/L Serum Total Protein (6.3-8.2) g/dL Albumin (3.5-5.0) g/dL Procalcitonin (0.030-0.080) ng/mL Urinalys Dipstick Clnc Urine Color (YELLOW) Urine Appearance (CLEAR) Urine pH (5-6) Ur Specific [place] (1.005-1.025) POC Urine Protein Conf (Negative) Urine Ketones (NEGATIVE) Urine Nitrite (NEGATIVE) Urine Bilirubin (NEGATIVE) Urine Urobilinogen (0-1) mg/dL Urine Leukocytes (NEGATIVE) Urine WBC (Auto) (0-5) /HPF Urine RBC (Auto) (0-2) /HPF U Epithel Cells (Auto) (FEW) /HPF Urine Bacteria (Auto) (NEGATIVE) /HPF Urine RBC (0-5) Young/ul Ur Culture Indicated? Urine Glucose (NEGATIVE) mg/dL Stool Occult Blood (NEGATIVE) Micro Results-Entire Visit: Accuchecks Date 08/18/22 Date 08/17/22 Time 08:01 Time 16:57 - Radiology Exams Ordered Rad Exams-Entire Visit: Radiology Procedures Category Date Time Status CHEST 1 VIEW (PORTABLE) Stat Exams 08/17/22 07:45 Completed - Procedures and Test Procedures and Tests throughout Hospitalization: Therapy Orders & Screens 08/17/22 13:01 OT Screen per Nursing Assess ONCE Comment: Protocol Order Physician Instructions: Greater than 3 points order OT Admission Screening Reason For Exam: Triggered on Admission Diagnosis: Hypokalemia;viral syndrome; generalized weakness Open Wound/Cellutlitis/Pressure Ulcers: No Acute Fx/ORIF/Change in wt bearing status: No Severe MUSCULOSKELETAL pain: Yes ADL Dysfunction: Yes Acute CVA w/Hemiparesis/Hemiplegia: No Decreased Functional Mobility/Strength: Yes Sprain/Strain: No Acute Post-op Mobility Dysfunction: No Total Points: 9 PT Screen per Nursing Assess ONCE Comment: Protocol Order Physician Instructions: Greater than 3 points order PT Admission Screenin Reason For Exam: Triggered on Admission Diagnosis: Hypokalemia;viral syndrome; generalized weakness Open Wound/Cellutlitis/Pressure Ulcers: No Acute Fx/ORIF/Change in wt bearing status: No Severe MUSCULOSKELETAL pain: Yes ADL Dysfunction: Yes Acute CVA w/Hemiparesis/Hemiplegia: No Decreased Functional Mobility/Strength: Yes Sprain/Strain: No Acute Post-op Mobility Dysfunction: No Total Points: 9 Smoking Cessation Education ONCE Comment: Diagnosis: Hypokalemia;viral syndrome; generalized weakness Smoking Status: Current every day smoker How long have you smoked: 45 years Have you smoked in the past 12 months: Yes Approximately how many cigarettes per day: 10 Do you dip or chew tobacco: No 08/18/22 07:00 Respiratory MDI UD Comment: ANORO DAILY Diagnosis: Hypokalemia;viral syndrome; generalized weakness Respiratory Therapy Assessment DAILY Comment: Diagnosis: Hypokalemia;viral syndrome; generalized weakness - Discharge Disposition: Home, Self-Care Condition: Stable Prescriptions: New Potassium Chloride 10 meq PO DAILY #30 tablet Continue hydroCHLOROthiazide [Hydrochlorothiazide] 50 mg PO DAILY Umeclidinium Brm/Vilanterol Tr [Anoro Ellipta 62.5-25 Mcg INH] 1 puff IH DAILY Trazodone HCl 50 mg [Desyrel 50 mg] 50 mg PO QHS [place]-3 Fatty Acids/Fish Oil [Fish Oil 1,000 mg Capsule] 1,000 mg PO BID Niacin (Inositol Niacinate) [Niacin 500 mg Capsule] 500 mg PO BID Metoprolol Tartrate 100 mg PO BID Lisinopril 20 mg [Zestril 20 MG] 20 mg PO DAILY Gabapentin [Neurontin ] 300 mg PO QID Furosemide 20 mg [Lasix 20 mg] 20 mg PO DAILY Famotidine [Pepcid] 40 mg PO QHS Duloxetine HCl 30 mg [Cymbalta 30 MG Capsule] 60 mg PO BID Diclofenac Sodium [Voltaren Arthritis Pain] 1 each TOP QID PRN Cyclobenzaprine HCl 10 mg [Cyclobenzaprine 10 MG] 10 mg PO QHS PRN PRN Reason: Insomnia Cholecalciferol (Vitamin D3) [Vitamin D3] 50 mcg PO DAILY Atorvastatin Calcium 10 mg PO QHS Aspirin/Dipyridamole [Aspirin-Dipyridam ER 25-200 mg] 1 each PO BID Albuterol Sulfate [Proair Respiclick] 2 puffs IH Q4HPRN PRN PRN Reason: Shortness Of Breath ALPRAZolam 0.25 MG [xanAX 0.25 MG] 0.25 mg PO DAILY PRN PRN PRN Reason: Anxiety Follow up with: MARYBEL OROZCO NP [Primary Care Provider] -
[2022-08-18] MEDS ORDERED: NON-FORMULARY ITEM (Hydrochlorothiazide [Hydrochlorothiazide] 50 MG Tablet) PO SCH (10:00)
[2022-08-18] MEDS ORDERED: PATIENT OWN MEDICATION PO SCH (10:00)
[2022-08-18] MEDS ORDERED: NON-FORMULARY ITEM (Cholecalciferol (Vitamin D3) [Vitamin D3] 50 MCG Capsule) PO SCH (10:00)
== END 2022-08-18 09:30 | disposition home or self-care (01) ==
LOC: ED 07:29 → MED SURG 11:38
PROVIDERS: ADMIT Family Medicine; ATTEND Family Medicine
DX: E87.6 Hypokalemia (principal); B34.9 Viral infection, unspecified; R53.1 Weakness; I10 Essential (primary) hypertension; E11.9 Type 2 diabetes mellitus without complications; Z79.899 Other long term (current) drug therapy; Z20.828 Contact with and (suspected) exposure to other viral communicable diseases; Z72.0 Tobacco use
CPT/HCPCS: 0241U; 36000; 36415; 71045; 80048; 80053; 81015; 82947; 83036; 83605; 83735; 84132; 84145; 85025; 87040; 87324; 93005; 93041; 94640; 94760; 96360; 96361; 96374; 96375; 99285; G0328; 82274; 93268; J3475; J3480; A9270-GY; G0378